=== PATIENT | female | born 1990 | race Caucasian/White ===

== ENCOUNTER 2022-11-05 17:36 | Emergency (ER) | payer OTHER ==
[~2022-11-05] VITALS: Ht 154.9 cm; Wt 81.2 kg
[2022-11-05 17:50] VITALS: BP 132/74; PULSE 94; RESP 18; TEMP 98; O2SAT 100
--- NOTE | 2022-11-05 19:50 | NUR ---
PATIENT LEFT WITHOUT BEING SEEN BY DR. BELLAMY. NO FURTHER CARE PROVIDED FOR PATIENT.
--- NOTE | 2022-11-05 19:50 | NUR ---
PT CALLED BY DR. BELLAMY AND TRIAGE NURSE SEVERAL TIMES. NO ANSWER. LWBS
== END 2022-11-05 19:50 | disposition left against medical advice (07) ==
LOC: MED 17:36
DX: R10.9 Unspecified abdominal pain (principal); Z53.21 Procedure and treatment not carried out due to patient leaving prior to being seen by health care provider
CPT/HCPCS: 99281

== ENCOUNTER 2023-08-03 16:55 | Emergency (ER) | payer OTHER ==
[~2023-08-03] VITALS: Ht 154.9 cm; Wt 76.2 kg
[2023-08-03 17:06] VITALS: BP 144/75; PULSE 80; RESP 18; TEMP 97.8; O2SAT 100
[2023-08-03 18:32] LABS: BASOPHILS # (AUTO) 0.1 K/uL (0.00-0.22); EOSINOPHILS # (AUTO) 0.1 K/uL (0-0.4); EOSINOPHILS % (AUTO) 1.3 % (0.0-4.0); HEMATOCRIT 35.4 % (36-48); HEMOGLOBIN 11.8 g/dL (12.0-16.0); LYMPHOCYTES # (AUTO) 1.7 K/uL (2.5-16.5); LYMPHOCYTES % (AUTO) 26.4 % (20.5-51.1); MEAN CORPUSCULAR HEMOGLOBIN 26 pg (27-31); MEAN CORPUSCULAR HGB CONC 33 g/dL (33-37); MEAN CORPUSCULAR VOLUME 78.6 fL (80-94); MONOCYTES # (AUTO) 0.5 K/uL (0.8-1.0); MONOCYTES % (AUTO) 8.2 % (1.7-9.3); NEUTROPHILS # (AUTO) 4.1 K/uL (1.8-7.7); NEUTROPHILS % (AUTO) 63.1 % (42.2-75.2); PLATELET COUNT (AUTO) 335 K/uL (140-450); RED CELL DISTRIBUTION WIDTH 14.3 % (11.6-13.7); WHITE BLOOD COUNT (AUTO) 6.6 K/uL (4.8-10.8)
[2023-08-03 18:55] LABS: APPEARANCE,URINE SLIGHTLY HAZY (CLEAR); COLOR,URINE YELLOW (YELLOW)
[2023-08-03 18:56] LABS: BLOOD, URINE TRACE (NEGATIVE); PROTEIN,URINE NEGATIVE (NEGATIVE); UGLUCOSE NEGATIVE (NEGATIVE)
[2023-08-03 18:57] LABS: BILIRUBIN,URINE NEGATIVE (NEGATIVE); LEUKOCYTE ESTERASE ,URINE TRACE (NEGATIVE); NITRITE, URINE NEGATIVE (NEGATIVE)
[2023-08-03 18:58] LABS: BACTERIA,URINE 1+ /HPF (None Seen); RBC,URINE 0-5 /HPF (0-5); SQUAMOUS EPITHELIAL CELL,UR 0-3 (FEW) /LPF (0-3 (FEW)); WBC,URINE 0-5 /HPF (0-5)
[2023-08-03 18:59] LABS: MUCUS,URINE None Seen /LPF (None Seen)
== END 2023-08-03 19:55 ==
LOC: MED 16:55
DX: O26.891 Other specified pregnancy related conditions, first trimester (principal); Z02.89 Encounter for other administrative examinations; Z3A.01 Less than 8 weeks gestation of pregnancy; Z79.899 Other long term (current) drug therapy
CPT/HCPCS: 36415; 76801; 81001; 81025; 84702; 85025; 86900; 86901; 99284